=== PATIENT | female | born 2000 | race Caucasian/White ===

== ENCOUNTER 2020-09-29 15:13 | Emergency (ER) | payer OTHER ==
[~2020-09-29] VITALS: Ht 157.5 cm; Wt 68.2 kg
[2020-09-29 15:23] VITALS: BP 148/67
[2020-09-29] MEDS ORDERED: TETanus/Pertussis (Acell)/Diphther VAC/PF (Tdap-Adult) 0.5ml syringe IMVAC ONE (15:25)
== END 2020-09-29 22:59 | disposition left against medical advice (07) ==
LOC: ER 15:14
DX: S61.214A Laceration without foreign body of right ring finger without damage to nail, initial encounter (principal); W22.8XXA Striking against or struck by other objects, initial encounter; Y93.89 Activity, other specified; Y92.89 Other specified places as the place of occurrence of the external cause; Y99.8 Other external cause status
CPT/HCPCS: 99281